=== PATIENT | female | born 1965 | race African-American/Black ===

== ENCOUNTER 2024-02-27 15:10 | Emergency (ER) | payer OTHER ==
[~2024-02-27] VITALS: Ht 167.6 cm; Wt 73.0 kg
[2024-02-27 15:18] VITALS: O2SAT 99
[2024-02-27 16:12] LABS: BASOPHILS % 1.1 % (0.0-2.0); EOSINOPHILS % 1.1 % (0.0-5.0); HEMATOCRIT. 41.2 % (36.0-48.0); HEMOGLOBIN. 13.5 g/dL (12.0-16.0); LYMPHOCYTES % 38.7 % (20.0-50.0); MEAN CORPUSCULAR HEMOGLOBIN 26.7 pg (28.0-32.0); MEAN CORPUSCULAR HGB CONC 32.7 g/dL (31.0-37.0); MEAN CORPUSCULAR VOLUME 81.6 fL (81.0-99.0); MEAN PLATELET VOLUME 8.1 fl (7.4-10.4); MONOCYTES % 8.5 % (2.0-8.0); NEUTROPHILS % 50.6 % (40.0-76.0); PLATELET 351 x1000/uL (130-400); RED BLOOD CELL COUNT 5.05 mill/uL (4.2-5.4); RED CELL DISTRIBUTION WIDTH 15.1 % (11.6-14.6); WHITE BLOOD COUNT 6.5 x1000/uL (4.5-11.0)
[2024-02-27 16:24] LABS: CHLORIDE 107 mEq/L (98-107); POTASSIUM 3.6 mEq/L (3.5-5.1); SODIUM 142 mEq/L (136-145)
[2024-02-27 16:25] LABS: CARBON DIOXIDE 27 mEq/L (21-32)
[2024-02-27 16:26] LABS: CALCIUM 9.4 mg/dL (8.7-10.4)
[2024-02-27 16:30] LABS: CREATININE 0.8 mg/dL (0.6-1.0)
[2024-02-27 16:31] LABS: GLUCOSE 89 mg/dL (70-105); UREA NITROGEN BLOOD 13 mg/dL (9-23)
[2024-02-27 16:32] LABS: ALANINE AMINOTRANSFERASE 17 IU/L (10-49); ALBUMIN 4.7 g/dL (3.2-4.8); ASPARTATE AMINOTRANSFERASE 16 IU/L (<34)
[2024-02-27 16:33] LABS: BILIRUBIN DIRECT 0.1 mg/dL (<=3.0); BILIRUBIN TOTAL 0.4 mg/dL (0.1-1.0); PROTEIN TOTAL 7.9 g/dL (6.0-8.3)
[2024-02-27 16:34] LABS: HCG SCREEN NEGATIVE
[2024-02-27] MEDS: SODIUM CHLORIDE 0.9% 1,000 ML IV ONE (18:36)
[2024-02-27] MEDS: PANTOPRAZOLE SODIUM 40 MG/VIAL IV STA (18:47)
[2024-02-27] MEDS: MORPHINE SULFATE 4 MG/ML INJ (FOR IV/IM USE) IV STA (18:47)
[2024-02-27] MEDS ORDERED: SODIUM CHLORIDE 0.9% 1,000 ML IV ONE (19:45)
[2024-02-27 20:51] LABS: TROPONIN I HIGH SENSITIVITY < 4 ng/L (3.0-34)
[2024-02-27 21:13] LABS: CLARITY URINE CLEAR (CLEAR); COLOR URINE YELLOW (YELLOW); GLUCOSE URINE NEGATIVE (NEGATIVE); KETONES URINE NEGATIVE (NEGATIVE); LEUKOCYTE ESTERASE URINE 1+ (NEGATIVE); NITRITE URINE NEGATIVE (NEGATIVE); OCCULT BLOOD URINE NEGATIVE (NEGATIVE); PH URINE 7.5 (4.5-8.0); PROTEIN URINE NEGATIVE (NEGATIVE); SPECIFIC GRAVITY URINE 1.017 (1.005-1.030); UROBILINOGEN URINE 0.2 E.U./dL (0.2-1.0)
[2024-02-27 21:26] LABS: BACTERIA URINE 1+; RBC URINE 0-2 /hpf (0-2); SQUAMOUS EPITHELIAL CELL URINE 1+ /lpf (RARE/1+)
[2024-02-27] MEDS ORDERED: DICY-18 MT (22:12)
[2024-02-27] MEDS ORDERED: PANT20TA17 MT (22:12)
[2024-02-27] MEDS ORDERED: CEPH500C2 MT (22:12)
[2024-02-27 22:15] VITALS: BP 142/89; PULSE 78; RESP 16; TEMP 97.4
[2024-02-27] MEDS ORDERED: IOHEXOL-350 100 ML BOTTLE ONE (23:09)
== END 2024-02-27 22:34 | disposition home or self-care (01) ==
LOC: ER 15:10
DX: R10.84 Generalized abdominal pain (principal); E78.00 Pure hypercholesterolemia, unspecified; I10 Essential (primary) hypertension; Z88.6 Allergy status to analgesic agent
CPT/HCPCS: 99285; 74174; 96374; 96361; 96375; 80076; 80048; 81003; 84703; 83690; 85025; 86850; 86900; 86901; 84484; 36415; Q9967; J2470; J2270; J7030